=== PATIENT | female | born 1975 | race Hispanic/Latino ===

== ENCOUNTER 2022-12-18 13:46 | Inpatient (IN) | payer SELFPAY ==
[~2022-12-18] VITALS: Ht 154.9 cm; Wt 68.0 kg
[~2022-12-18 13:46] MED LIST: FENTANYL CITRATE/PF 100MCG/2 ML INJ ONE
[2022-12-18] MEDS ORDERED: SODIUM CHLORIDE 0.9% 1000ML 1,000 ML IV STA (14:10)
[2022-12-18] MEDS ORDERED: Morphine 4mg INJECTION 4 MG/ML INJ IV ONE (14:10)
[2022-12-18] MEDS ORDERED: ONDANSETRON HCL INJ 2MG/ML 2ML 2 MG/ML VIAL IV ONE (14:10)
[2022-12-18 14:20] LABS: BASOPHILS # (AUTO) 0.1 (0.0-0.1); BASOPHILS % 0.5 % (0.0-1.0); EOSINOPHILS % 0.3 % (0.0-6.0); HEMATOCRIT 39.2 % (34.2-44.1); HEMOGLOBIN 12.7 g/dL (12.0-16.0); LYMPHOCYTES # (AUTO) 0.9 (1.0-3.2); LYMPHOCYTES % 7.3 % (18.0-39.1); MEAN CORPUSCULAR HEMOGLOBIN 28.5 pg (28-32); MEAN CORPUSCULAR HGB CONC 32.4 g/dL (31-35); MEAN CORPUSCULAR VOLUME 88.1 fL (81-99); MONOCYTES # (AUTO) 0.7 (0.2-0.8); MONOCYTES % 5.6 % (4.4-11.3); NEUTROPHILS % 85.8 % (38.7-80.0); PLATELET COUNT 173 x10e3/uL (140-360); RED BLOOD COUNT 4.45 x10e6/uL (3.6-5.1); RED CELL DISTRIBUTION WIDTH 13.1 % (11.7-14.4)
[2022-12-18 14:31] LABS: ALANINE AMINOTRANSFERASE 18 IU/L (0-55); ALBUMIN 3.4 g/dL (3.5-5.0); ALBUMIN/GLOBULIN RATIO 0.9 (0.8-2.0); ALKALINE PHOSPHATASE 73 IU/L (40-150); ANION GAP 14.4 mmol/L (8-16); BLOOD UREA NITROGEN 8 mg/dL (7-26); BUN/CREATININE RATIO 11 (6-25); CALCIUM 8.9 mg/dL (8.4-10.2); CARBON DIOXIDE 22 mmol/L (22-29); CHLORIDE 101 mmol/L (98-107); CREATININE, SERUM 0.74 mg/dL (0.57-1.11); GLUCOSE 327 mg/dL (74-118); POTASSIUM 3.4 mmol/L (3.5-5.1); SODIUM 134 mmol/L (136-145)
[2022-12-18] MEDS ORDERED: SODIUM CHLORIDE 0.9% 1000ML 1,000 ML IV SCH (14:45)
[2022-12-18] MEDS ORDERED: ONDANSETRON HCL INJ 2MG/ML 2ML 2 MG/ML VIAL IV PRN (14:45)
[2022-12-18] MEDS: Doxycycline IV 100 MG in SODIUM CHLORIDE 0.9% 100 ML IV SCH (14:51)
[2022-12-18 17:32] VITALS: BP 111/48
[2022-12-18] MEDS ORDERED: POLYETHYLENE GLYCOL 3350 17 GM PACK PO PRN (18:00)
[2022-12-18] MEDS ORDERED: ACETAMINOPHEN 325 MG TAB PO PRN (18:00)
[2022-12-18] MEDS ORDERED: TEMAZEPAM 7.5 MG CAP PO PRN (18:00)
[2022-12-18] MEDS ORDERED: METOPROLOL TARTRATE INJ 1 MG/ML VIAL IV PRN (18:00)
[2022-12-18 18:18] LABS: CHOL/HDL RATIO 2.9 (3.0-3.6); MAGNESIUM 1.7 MG/DL (1.3-2.1); PHOSPHORUS 2.2 MG/DL (2.3-4.7)
[2022-12-18 18:29] VITALS: BP 111/48
[2022-12-18 18:38] LABS: THYROID STIMULATING HORMONE 0.274 uIU/mL (0.350-4.940)
[2022-12-18 20:00] VITALS: BP 140/75
[2022-12-18] MEDS ORDERED: POTASSIUM PHOSPHATE 15 MM in SODIUM CHLORIDE 0.9% 250ML 250 ML IV ONE (20:00)
[2022-12-18] MEDS ORDERED: MAGNESIUM SULF 1GRAM/DEXTROSE 100 ML IV ONE (20:00)
[2022-12-18] MEDS ORDERED: DEXTROSE 50% SYRINGE 50 ML IV PRN (20:45)
[2022-12-18] MEDS: INSULIN REGULAR, HUMAN 100 UNIT/1 ML SQ SCH (21:00)
[2022-12-18] MEDS: INSULIN GLARGINE 100 UNITS/ML VIAL SQ SCH (21:00)
[2022-12-18 21:46] VITALS: BP 140/75
[2022-12-18] MEDS: SODIUM CHLORIDE 0.9% 1000ML 1,000 ML IV SCH (22:06)
[2022-12-18] MEDS: Morphine 4mg INJECTION 4 MG/ML INJ IV PRN (22:21)
[2022-12-18] MEDS ORDERED: BASAGLAR T100 UNIT/1 (23:55)
[2022-12-18] MEDS ORDERED: ATORVASTATIN CA10 MG PO (23:55)
[2022-12-19] MEDS: Doxycycline IV 100 MG in SODIUM CHLORIDE 0.9% 100 ML IV SCH ×2 (01:29→14:17)
[2022-12-19 01:34] VITALS: BP 103/65
[2022-12-19 05:37] VITALS: BP 106/66
[2022-12-19 06:00] LABS: BASOPHILS % 0.4 % (0.0-1.0); EOSINOPHILS # (AUTO) 0.2 (0.0-0.4); EOSINOPHILS % 1.5 % (0.0-6.0); HEMATOCRIT 35.2 % (34.2-44.1); HEMOGLOBIN 10.9 g/dL (12.0-16.0); LYMPHOCYTES # (AUTO) 1.4 (1.0-3.2); LYMPHOCYTES % 14.5 % (18.0-39.1); MEAN CORPUSCULAR HEMOGLOBIN 29.1 pg (28-32); MEAN CORPUSCULAR VOLUME 94.1 fL (81-99); MONOCYTES # (AUTO) 0.8 (0.2-0.8); NEUTROPHILS # (AUTO) 7.3 (2.1-6.9); NEUTROPHILS % 75.2 % (38.7-80.0); PLATELET COUNT 154 x10e3/uL (140-360); RED BLOOD COUNT 3.74 x10e6/uL (3.6-5.1); RED CELL DISTRIBUTION WIDTH 12.5 % (11.7-14.4)
[2022-12-19 06:21] LABS: ANION GAP 14.3 mmol/L (8-16); CALCIUM 8.1 mg/dL (8.4-10.2); CREATININE, SERUM 0.62 mg/dL (0.57-1.11); POTASSIUM 3.3 mmol/L (3.5-5.1)
[2022-12-19 06:40] LABS: MAGNESIUM 1.8 MG/DL (1.3-2.1); PHOSPHORUS 2.2 MG/DL (2.3-4.7)
[2022-12-19] MEDS ORDERED: TEMAZEPAM 15 MG CAP PO PRN (07:15)
[2022-12-19] MEDS: INSULIN REGULAR, HUMAN 100 UNIT/1 ML SQ SCH ×4 (07:30→21:10)
[2022-12-19 08:13] VITALS: BP 123/72
[2022-12-19] MEDS: HYDROCODONE/APAP 7.5MG-325MG 1 EA TAB PO PRN ×3 (08:45→21:13)
[2022-12-19] MEDS: ZINC SULFATE 50 MG CAP PO SCH ×2 (08:46→16:21)
[2022-12-19] MEDS: ASCORBIC ACID 500 MG TAB PO SCH ×2 (08:46→16:21)
[2022-12-19] MEDS: DOCUSATE SODIUM 100 MG CAP PO SCH ×2 (08:46→16:21)
[2022-12-19] MEDS: MAGNESIUM OXIDE 400 MG TAB PO SCH ×2 (08:46→16:21)
[2022-12-19] MEDS: OYST-CAL-D 500MG TABLET PO SCH ×2 (08:46→16:21)
[2022-12-19] MEDS: FAMOTIDINE 20 MG TAB PO SCH ×2 (08:47→16:22)
[2022-12-19] MEDS: MULTIVITAMINS/MINERALS TAB PO SCH (08:47)
[2022-12-19] MEDS: SODIUM CHLORIDE 0.9% 1000ML 1,000 ML IV SCH ×2 (08:51→16:22)
[2022-12-19 11:42] VITALS: BP 116/67
[2022-12-19 15:54] VITALS: BP 106/63
[2022-12-19] MEDS ORDERED: POTASSIUM CHLORIDE 20 MEQ TAB CR PO ONE (18:15)
[2022-12-19 20:49] VITALS: BP 122/74
[2022-12-19] MEDS: ONDANSETRON HCL 4 MG ORAL DISINTEGRATING TAB PO PRN (21:05)
[2022-12-19] MEDS: INSULIN GLARGINE 100 UNITS/ML VIAL SQ SCH (21:11)
[2022-12-20] VITALS (9 sets, daily range): BP systolic 111–133; BP diastolic 69–77
[2022-12-20] MEDS: Doxycycline IV 100 MG in SODIUM CHLORIDE 0.9% 100 ML IV SCH ×2 (02:00→16:08)
[2022-12-20] MEDS: SODIUM CHLORIDE 0.9% 1000ML 1,000 ML IV SCH ×2 (05:59→16:13)
[2022-12-20] MEDS: HYDROCODONE/APAP 7.5MG-325MG 1 EA TAB PO PRN (06:05)
[2022-12-20] MEDS: ONDANSETRON HCL 4 MG ORAL DISINTEGRATING TAB PO PRN (06:06)
[2022-12-20] MEDS: OYST-CAL-D 500MG TABLET PO SCH ×2 (09:46→17:25)
[2022-12-20] MEDS: DOCUSATE SODIUM 100 MG CAP PO SCH ×2 (09:46→17:25)
[2022-12-20] MEDS: MAGNESIUM OXIDE 400 MG TAB PO SCH ×2 (09:46→17:25)
[2022-12-20] MEDS: MULTIVITAMINS/MINERALS TAB PO SCH (09:46)
[2022-12-20] MEDS: ZINC SULFATE 50 MG CAP PO SCH ×2 (09:46→17:25)
[2022-12-20] MEDS: FAMOTIDINE 20 MG TAB PO SCH ×2 (09:46→17:26)
[2022-12-20] MEDS: ASCORBIC ACID 500 MG TAB PO SCH ×2 (09:46→17:25)
[2022-12-20] MEDS: INSULIN REGULAR, HUMAN 100 UNIT/1 ML SQ SCH ×4 (10:02→21:25)
[2022-12-20] MEDS: Morphine 4mg INJECTION 4 MG/ML INJ IV PRN ×2 (10:18→21:32)
[2022-12-20] MEDS ORDERED: BUPIVACAINE HCL 0.5% INJ 30 ML VIAL INJ ONE (12:04)
[2022-12-20] MEDS ORDERED: MUPIROCIN 2% OINT 22 GM TUBE ONE (12:39)
[2022-12-20] MEDS ORDERED: PROPOFOL IV EMULSION 10 MG/ML 20 ML VIAL ONE (13:03)
[2022-12-20] MEDS ORDERED: LIDOCAINE HCL 2% LOCAL INJ 5 ML SDV VIAL INJ ONE (13:03)
[2022-12-20] MEDS ORDERED: ONDANSETRON HCL INJ 2MG/ML 2ML 2 MG/ML VIAL ONE (13:03)
[2022-12-20] MEDS ORDERED: DEXAMETHASONE SOD PHOS INJ 4 MG/ML SDV ONE (13:03)
[2022-12-20] MEDS ORDERED: POVIDONE IODINE 0.05% 0.05 % ML PO ONE (13:03)
[2022-12-20] MEDS ORDERED: EPHEDRINE SULFATE INJ 50 MG/ML VIAL ONE (13:03)
[2022-12-20] MEDS ORDERED: KETOROLAC TROMETHAMINE 30 MG/ML VIAL ONE (13:03)
[2022-12-20] MEDS: INSULIN GLARGINE 100 UNITS/ML VIAL SQ SCH (21:26)
[2022-12-21] VITALS (8 sets, daily range): BP systolic 131–146; BP diastolic 69–89
[2022-12-21] MEDS: Doxycycline IV 100 MG in SODIUM CHLORIDE 0.9% 100 ML IV SCH ×2 (02:16→16:52)
[2022-12-21 06:47] LABS: BASOPHILS # (AUTO) 0.1 (0.0-0.1); BASOPHILS % 0.6 % (0.0-1.0); EOSINOPHILS % 0.2 % (0.0-6.0); HEMATOCRIT 31.6 % (34.2-44.1); HEMOGLOBIN 10.4 g/dL (12.0-16.0); LYMPHOCYTES # (AUTO) 1.2 (1.0-3.2); MEAN CORPUSCULAR HEMOGLOBIN 28.9 pg (28-32); MEAN CORPUSCULAR HGB CONC 32.9 g/dL (31-35); MEAN CORPUSCULAR VOLUME 87.8 fL (81-99); MONOCYTES # (AUTO) 0.5 (0.2-0.8); NEUTROPHILS % 78.3 % (38.7-80.0); PLATELET COUNT 194 x10e3/uL (140-360); RED CELL DISTRIBUTION WIDTH 12.6 % (11.7-14.4)
[2022-12-21 07:08] LABS: ANION GAP 12.5 mmol/L (8-16); CALCIUM 8.3 mg/dL (8.4-10.2); CREATININE, SERUM 0.56 mg/dL (0.57-1.11); POTASSIUM 3.5 mmol/L (3.5-5.1)
[2022-12-21] MEDS: SODIUM CHLORIDE 0.9% 1000ML 1,000 ML IV SCH (07:36)
[2022-12-21] MEDS: MULTIVITAMINS/MINERALS TAB PO SCH (08:16)
[2022-12-21] MEDS: ZINC SULFATE 50 MG CAP PO SCH ×2 (08:16→16:53)
[2022-12-21] MEDS: MAGNESIUM OXIDE 400 MG TAB PO SCH ×2 (08:16→16:52)
[2022-12-21] MEDS: DOCUSATE SODIUM 100 MG CAP PO SCH ×2 (08:19→16:53)
[2022-12-21] MEDS: FAMOTIDINE 20 MG TAB PO SCH ×2 (08:19→16:52)
[2022-12-21] MEDS: ASCORBIC ACID 500 MG TAB PO SCH ×2 (08:19→16:53)
[2022-12-21] MEDS: INSULIN REGULAR, HUMAN 100 UNIT/1 ML SQ SCH ×4 (08:26→20:17)
[2022-12-21] MEDS: OYST-CAL-D 500MG TABLET PO SCH ×2 (08:27→16:52)
[2022-12-21] MEDS: Morphine 4mg INJECTION 4 MG/ML INJ IV PRN ×2 (13:33→22:23)
[2022-12-21] MEDS ORDERED: DEXTROSE 50% SYRINGE 50 ML IV PRN (13:45)
[2022-12-21] MEDS ORDERED: INSULIN GLARGINE 100 UNITS/ML VIAL SQ SCH (21:00)
[2022-12-21] MEDS ORDERED: BISACODYL 10 MG SUPP PR PRN (22:00)
[2022-12-22 01:50] VITALS: BP 108/71
[2022-12-22] MEDS: Doxycycline IV 100 MG in SODIUM CHLORIDE 0.9% 100 ML IV SCH ×2 (02:47→14:17)
[2022-12-22] MEDS: Morphine 4mg INJECTION 4 MG/ML INJ IV PRN ×3 (04:48→13:37)
[2022-12-22 05:06] VITALS: BP 135/86
[2022-12-22 06:13] LABS: BASOPHILS # (AUTO) 0.1 (0.0-0.1); BASOPHILS % 0.7 % (0.0-1.0); EOSINOPHILS # (AUTO) 0.2 (0.0-0.4); EOSINOPHILS % 2.5 % (0.0-6.0); HEMATOCRIT 32.2 % (34.2-44.1); HEMOGLOBIN 9.6 g/dL (12.0-16.0); LYMPHOCYTES # (AUTO) 2.4 (1.0-3.2); MEAN CORPUSCULAR HEMOGLOBIN 28.4 pg (28-32); MEAN CORPUSCULAR HGB CONC 29.8 g/dL (31-35); MEAN CORPUSCULAR VOLUME 95.3 fL (81-99); MONOCYTES # (AUTO) 0.4 (0.2-0.8); MONOCYTES % 6.5 % (4.4-11.3); NEUTROPHILS # (AUTO) 3.7 (2.1-6.9); NEUTROPHILS % 54.6 % (38.7-80.0); PLATELET COUNT 192 x10e3/uL (140-360); RED BLOOD COUNT 3.38 x10e6/uL (3.6-5.1)
[2022-12-22 06:37] LABS: ANION GAP 11.2 mmol/L (8-16); CALCIUM 7.9 mg/dL (8.4-10.2); CREATININE, SERUM 0.49 mg/dL (0.57-1.11); POTASSIUM 3.2 mmol/L (3.5-5.1)
[2022-12-22] MEDS: INSULIN REGULAR, HUMAN 100 UNIT/1 ML SQ SCH ×3 (07:30→16:54)
[2022-12-22 08:00] VITALS: BP 135/86
[2022-12-22 09:10] VITALS: BP 123/70
[2022-12-22] MEDS: DOCUSATE SODIUM 100 MG CAP PO SCH (09:36)
[2022-12-22] MEDS: ASCORBIC ACID 500 MG TAB PO SCH (09:36)
[2022-12-22] MEDS: OYST-CAL-D 500MG TABLET PO SCH (09:36)
[2022-12-22] MEDS: ZINC SULFATE 50 MG CAP PO SCH (09:37)
[2022-12-22] MEDS: MAGNESIUM OXIDE 400 MG TAB PO SCH (09:37)
[2022-12-22] MEDS: MULTIVITAMINS/MINERALS TAB PO SCH (09:37)
[2022-12-22] MEDS: FAMOTIDINE 20 MG TAB PO SCH ×2 (09:37→16:53)
[2022-12-22 12:43] VITALS: BP 144/86
[2022-12-22] MEDS ORDERED: CEFUROXIME500 MG PO (14:38)
[2022-12-22] MEDS ORDERED: POTASSIUM CHLORIDE 20 MEQ TAB CR PO STA (14:43)
[2022-12-22] MEDS ORDERED: Tylenol#3 PO (16:22)
== END 2022-12-22 16:57 | disposition home or self-care (01) | DRG 988 ==
LOC: ER 13:50 → ERHOLD 14:40 → MED/SURG2 17:19 → OBSVTOIN 12-19 14:01
PROVIDERS: ADMIT Internal Medicine; ATTEND Internal Medicine
PROC: 0L970ZZ Drainage of Right Hand Tendon, Open Approach (ICD-10-PCS; principal; 2022-12-20 11:57)
DX: L03.011 Cellulitis of right finger (principal); E87.1 Hypo-osmolality and hyponatremia; L03.123 Acute lymphangitis of right upper limb; L03.021 Acute lymphangitis of right finger; F17.210 Nicotine dependence, cigarettes, uncomplicated; E83.42 Hypomagnesemia; E11.65 Type 2 diabetes mellitus with hyperglycemia; M65.841 Other synovitis and tenosynovitis, right hand; E87.6 Hypokalemia; E78.00 Pure hypercholesterolemia, unspecified; E83.39 Other disorders of phosphorus metabolism; R11.0 Nausea; E78.5 Hyperlipidemia, unspecified; Z79.4 Long term (current) use of insulin; Z98.51 Tubal ligation status; Z83.3 Family history of diabetes mellitus; Z80.0 Family history of malignant neoplasm of digestive organs; Z79.899 Other long term (current) drug therapy
CPT/HCPCS: 36415; 80048; 80053; 80061; 82948; 83036; 83605; 83735; 84100; 84443; 84702; 85025; 87040; 87071; 87075; 87205; 94799; 96361; 96372; 99252; 99284; G0378; J0692; J1100; J1815; J1817; J1885; J2001; J2270; J2405; J3010; J3475; J7030; J7050; Q0162